=== PATIENT | female | born 1995 ===

== ENCOUNTER 2016-12-21 22:36 | Emergency (ER) | payer MEDICAID ==
[~2016-12-21 22:36] MED LIST: MOTRIN-DPS800 MG PO; PRENATAL VIT1 TAB PO; TYLENOL #3 DPS1 TAB PO; ZOLOFT100 MG PO; [UNRECOGNIZED DRUG - REMARK] TP
--- NOTE | 2016-12-23 04:19 | ER ---
ADMIT: 12/21/2016 RM/LOC: ER [facility] MR#: [id number] [address] OZZIE FOLEY [address] [place] [address] Emergency Room Report SEX: F AGE: 20 : 1995 DATE: 12/21/2016 ADDENDUM: The patient actually comes in with two complaints this evening. First complaint is that she hit a wall a couple of days ago and she wanted her hand checked out to make sure there was no fracture. Her other complaint is that she has some left lower quadrant abdominal pain which she stated began several hours ago. On further questioning, after significant amount of time with the patient, it sounds like her primary concern is actually that she could be exposed to an STD as she has had chlamydia before and wonders if this left lower quadrant pain could be chlamydia. She, however, denies any discharge or vaginal itching. Her menstrual periods have been normal and she has not missed any. Her pain has been constant for the last couple of hours but this actually seemed like it has gotten a little bit better. She has no nausea or vomiting, no diarrhea or constipation. She also denies any urinary symptoms whatsoever. On physical exam, she did have some mild tenderness to palpation in her left lower quadrant. Otherwise, belly was soft. Bowel sounds are active. I did discuss with the patient that we should do a pelvic exam to check for possible STDs, but she is extremely reluctant to have us do a pelvic at this time. She actually asked for a female provider and she was told we do not have one this evening. I did give the patient some options stating that she could always follow up at the STD clinic to be checked or she can return when we have a female provider. I also told her that I would be willing to do the exam and test her and again she deferred. I, therefore, decided to go ahead and treat the patient with 250 mg of ceftriaxone IM and azithromycin 1 g p.o. for possible GC chlamydia exposure. Her urinalysis showed 2+ leukocyte esterase, but really no other signs of infection. She does not have any urinary symptoms. She was not placed on antibiotics for UTI at this time, but we will follow up with her urine culture. As far as her right hand, I did do an x-ray which shows no fracture. The patient is discharged home in stable condition, to follow up as needed, and return for any other concerning symptoms. DIAGNOSES: 1. Left lower quadrant abdominal pain. 2. Right hand contusion. Shaquille Mcmahon MD/ bea JOB #: [id number] CC: Shaquille Mcmahon MD, Attending Physician Carola Wagner MD, Family Physician
== END 2016-12-22 00:43 | disposition home or self-care (01) ==
LOC: ER 22:36
DX: S60.221A Contusion of right hand, initial encounter (principal); R10.32 Left lower quadrant pain; F32.9 Major depressive disorder, single episode, unspecified; G40.909 Epilepsy, unspecified, not intractable, without status epilepticus; W22.8XXA Striking against or struck by other objects, initial encounter

== ENCOUNTER 2016-12-22 15:11 | Emergency (ER) | payer MEDICAID, OTHER ==
--- NOTE | 2017-01-01 10:31 | ER ---
ADMIT: 12/22/2016 RM/LOC: ER [facility] MR#: [id number] [address] [address] OZZIE FOLEY [address] [place] [address] Emergency Room Report SEX: F AGE: 21 : 1995 DATE: 12/22/2016 ADDENDUM: A 21-year-old, female, came in last night after having a hand injury after she punched a wall. Over-read did show a fracture at the base of the 4th metacarpal. This is minimally displaced. We put a splint on there and then discharged her with followup to Ortho later this week. CONDITION ON DISCHARGE: Fair. Tray Mata MD/ bea JOB #: [id number] CC: Tray Mata MD, Attending Physician Carola Wagner MD, Family Physician
--- NOTE | 2017-01-20 08:25 | ER ---
ADMIT: 12/22/2016 RM/LOC: ER [facility] MR#: [id number] [address] [address] OZZIE FOLEY [address] [place] [address] Emergency Room Report SEX: F AGE: 21 : 1995 DATE: 12/22/2016 ADDENDUM: In review, she had a missed fracture, was brought back for second visit. We put a splint on her. There is no evaluation or management and no charge for this visit. Again, no evaluation and management charge for this visit. Tray Mata MD/ bea JOB #: [id number] CC: Tray Mata MD, Attending Physician Carola Wagner MD, Family Physician
== END 2016-12-22 16:10 | disposition home or self-care (01) ==
LOC: ER 15:11
PROC: 2W38X1Z Immobilization of Right Upper Extremity using Splint (ICD-10-PCS; principal; 2016-12-22)
DX: S62.314A Displaced fracture of base of fourth metacarpal bone, right hand, initial encounter for closed fracture (principal); G40.909 Epilepsy, unspecified, not intractable, without status epilepticus; W22.01XA Walked into wall, initial encounter; Y92.410 Unspecified street and highway as the place of occurrence of the external cause

== ENCOUNTER 2017-01-06 14:43 | Emergency (ER) | payer MEDICAID ==
--- NOTE | 2017-01-17 14:39 | ER ---
ADMIT: 01/06/2017 RM/LOC: ER [facility] MR#: [id number] [address] [address] OZZIE FOLEY [address] [place] [address] Emergency Room Report SEX: F AGE: 21 : 1995 DATE: 01/06/2017 ADDENDUM: CHIEF COMPLAINT: Sores in genital area. HISTORY OF PRESENT ILLNESS: This is a 21-year-old female, who just had a recent diagnosis of chlamydia and was treated for that, then she broke out in sores just within the last couple days. On examination, it looks like herpetic lesions. I am treating her with acyclovir. I did tell her that she is always contagious now. Follow up with Dr. Wagner regarding refills of acyclovir for outbreaks. CLINICAL IMPRESSION: Genital herpes. DICK Villegas / Daryl Wynn MD / selenal JOB #: [id number] CC: Daryl Wynn MD, Attending Physician
== END 2017-01-06 15:35 | disposition home or self-care (01) ==
LOC: ER 14:43
DX: A60.09 Herpesviral infection of other urogenital tract (principal)